=== PATIENT | male | born 1975 ===

== ENCOUNTER 2018-02-08 20:24 | Emergency (ER) | payer OTHER ==
[2018-02-08] MEDS ORDERED: NS 0.9% 1000 ML* 1,000 ML IV ONE (22:04)
--- NOTE | 2018-02-08 22:28 | ED ---
Abdominal Pain/Male - HPI Summary HPI Summary: Complains of new onset RLQ abdominal pain 2 days. Patient states pain is low- grade but constant with occasional spikes up to 5 out of 10. Patient has decreased appetite. Pain is worse with movement. States one soft stool earlier today, decreased stool production yesterday. Denies trauma, fever, cough, sore throat, CP, SOB, N/V/D, change in urine. Medical history is HDL, Denies abdominal surgical history. Nonsmoker, occasional EtOH, denies illegal drug use. - History of Current Complaint Chief Complaint: EDAbdPain Stated Complaint: ABD PAIN Time Seen by Provider: 02/08/18 21:42 Hx Obtained From: Patient Onset/Duration: Gradual Onset Timing: Constant, Lasting Days Severity Initially: Mild Severity Currently: Mild Pain Intensity: 2 Pain Scale Used: 0-10 Numeric Location: Discrete At: RLQ Radiates: No Character: Dull Aggravating Factor(s): Movement Associated Signs And Symptoms: Positive: Decreased Appetite - Risk Factors Testicular Torsion: Negative Cardiac Risk Factors: Elevated Lipids - Allergies/Home Medications Allergies/Adverse Reactions: Allergies Allergy/AdvReac Type Severity Reaction Status Date / Time No Known Allergies Allergy Verified 02/08/18 20:28 Home Medications: Home Medications NK [No Home Medications Reported] 02/08/18 [History Confirmed 02/08/18] PMH/Surg Hx/FS Hx/Imm Hx Previously Healthy: Yes Endocrine/Hematology History: Denies: Hx Anticoagulant Therapy Cardiovascular History: Denies: Hx Angina Respiratory History: Denies: Hx Asthma GI History: Denies: Hx Cirrhosis History: Denies: Hx Acute Renal Failure Musculoskeletal History: Denies: Hx Arthritis Sensory History: Denies: Hx Cataracts EENT History: Denies: Hx Deafness Neurological History: Denies: Hx CVA Infectious Disease History: No Infectious Disease History: Denies: Traveled Outside the [place] in Last 30 Days - Social History Alcohol Use: Occasionally Hx Substance Use: No Substance Use Type: Reports: None Hx Tobacco Use: No Review of Systems Constitutional: Negative Eyes: Negative ENT: Negative Cardiovascular: Negative Respiratory: Negative Positive: Abdominal Pain Genitourinary: Negative Musculoskeletal: Negative Skin: Negative Neurological: Negative Psychological: Normal All Other Systems Reviewed And Are Negative: Yes Physical Exam - Summary Physical Exam Summary: nontender to palpation in every quadrant, including RLQ. Pain not reproducible Triage Information Reviewed: Yes Vital Signs On Initial Exam: Initial Vitals Temp Pulse Resp BP Pulse Ox 97.9 F 76 16 123/88 96 02/08/18 20:26 02/08/18 20:26 02/08/18 20:26 02/08/18 20:26 02/08/18 20:26 Vital Signs Reviewed: Yes Appearance: Positive: Well-Appearing Skin: Positive: Warm Head/Face: Positive: Normal Head/Face Inspection Eyes: Positive: Normal Neck: Positive: Supple Respiratory/Lung Sounds: Positive: Clear to Auscultation Cardiovascular: Positive: Normal Abdomen Description: Positive: Nontender Musculoskeletal: Positive: Normal Neurological: Positive: Normal Psychiatric: Positive: Normal AVPU Assessment: Alert - Sharon Coma Scale Best Eye Response: 4 - Spontaneous Best Motor Response: 6 - Obeys Commands Best Verbal Response: 5 - Oriented Coma Scale Total: 15 Diagnostics - Vital Signs Vital Signs Temp Pulse Resp BP Pulse Ox 02/08/18 20:26 97.9 F 76 16 123/88 96 - Laboratory Result Diagrams: 02/08/18 22:24 02/08/18 22:24 Lab Statement: Any lab studies that have been ordered have been reviewed, and results considered in the medical decision making process. Re-Evaluation - Re-Evaluation 1 Re-Evaluation Time: 23:35 Change: Unchanged Abdominal Pain Fem Course/Dx - Course Course Of Treatment: Complains of new onset RLQ abdominal pain 2 days. Patient states pain is low-grade but constant with occasional spikes up to 5 out of 10. Patient has decreased appetite. Pain is worse with movement. States one soft stool earlier today, decreased stool production yesterday. Denies trauma, fever, cough, sore throat, CP, SOB, N/V/D, change in urine. Medical history is HDL, Denies abdominal surgical history. Nonsmoker, occasional EtOH, denies illegal drug use. nontender to palpation in every quadrant, including RLQ. Pain not reproducible. Negative heel test. Vital signs within normal limits and stable. No other symptoms. Discussed CT versus watchful waiting with patient. Patient opted for watchful waiting as physical exam, labs, vital signs all unremarkable. Patient discussed his situation with his father who is M.D. and both opted for watchful waiting. Discussed with patient concerning symptoms to watch out for including fever, N/V, worsening pain. Also advised patient that if pain did not improve in any way in 2 days to come back for appendicitis rule out. Patient understands and agrees with plan. - Diagnoses Provider Diagnoses: Right sided abdominal pain Discharge - Sign-Out/Discharge Documenting (check all that apply): Discharge/Admit/Transfer - Discharge Plan Condition: Stable Disposition: HOME Patient Education Materials: Acute Abdominal Pain (ED) Referrals: Yazmin Coffman MD [Primary Care Provider] - Additional Instructions: Follow-up with primary care. Return to the ED if pain does not improve or for any new or worsening symptoms - Billing Disposition and Condition Condition: STABLE Disposition: Home
[2018-02-08 22:34] LABS: ABS Basophils 0 10^3/ul (0-0.2); ABS Eosinophils 0.3 10^3/ul (0-0.6); ABS Lymphocytes 2.5 10^3/ul (1.0-4.8); ABS Monocytes 0.8 10^3/ul (0-0.8); ABS Neutrophils 3.9 10^3/ul (1.5-7.7); ABS Nucleated RBC 0 10^3/ul; Eosinophil % 3.4 % (0-6); Hematocrit 50 % (42-52); Lymphocyte % 33.5 % (25-47); Mean Corpuscular HGB Conc 34 g/dl (31-36); Mean Corpuscular Hemoglobin 30 pg (27-31); Mean Corpuscular Volume 87 fL (80-94); Mean Platelet Volume 8.2 um3 (7.4-10.4); Nucleated Red Blood Cells % 0.1; Platelet Count 230 10^3/ul (150-450); Red Blood Count 5.75 10^6/ul (4.00-5.40); Red Cell Distribution Width 13 % (10.5-15); White Blood Count 7.5 10^3/ul (3.5-10.8)
[2018-02-08 22:43] LABS: Urine Appearance Clear; Urine Blood 1+ (Negative); Urine Color Straw; Urine Ketones Negative (Negative); Urine Protein Negative (Negative); Urine Specific Gravity 1.006 (1.010-1.030); Urine Urobilinogen Negative (Negative)
[2018-02-08 22:50] LABS: EGFR Non-African American 74.6 (>60)
[2018-02-08 23:52] VITALS: BP 122/84
== END 2018-02-08 23:51 | disposition home or self-care (01) ==
LOC: ED 20:24
DX: R10.31 Right lower quadrant pain (principal)
CPT/HCPCS: 36415; 80053; 81003; 81015; 83605; 83690; 85025; 86140; 96360; 99282